=== PATIENT | female | born 1935 | race Caucasian/White ===

== ENCOUNTER 2017-02-26 15:18 | Emergency (ER) | payer MEDICARE, OTHER ==
[~2017-02-26] VITALS: Ht 165.1 cm; Wt 70.0 kg
[2017-02-26 17:15] VITALS: BP 142/67; PULSE 90; RESP 16; TEMP 98.7; O2SAT 96; O2SAT 99
[2017-02-26] MEDS ORDERED: SODIUM CHLOR 0.9% 1000 ML INJ 1,000 ML IV ONE (17:15)
[2017-02-26] MEDS ORDERED: SODIUM CHLORIDE 0.9% FLUSH 10 ML FLUSH IVF PRN (17:15)
[2017-02-26] MEDS ORDERED: CITA10TA4 PO (17:29)
[2017-02-26] MEDS ORDERED: SIMV20TA PO (17:29)
[2017-02-26] MEDS ORDERED: OMEP20TA PO (17:29)
[2017-02-26] MEDS ORDERED: AMLO5TAB2 PO (17:29)
[2017-02-26] MEDS ORDERED: ASPI1TAB69 PO (17:29)
[2017-02-26] MEDS ORDERED: CALC1TAB30 PO (17:29)
[2017-02-26] MEDS ORDERED: HYDR25TA5 PO (17:29)
--- NOTE | 2017-02-26 17:38 | RADRPT ---
EXAM DATE/TIME: 02/26/2017 17:11 [place] COMPARISON: No previous studies available for comparison. INDICATIONS : Short of breath. MEDICAL HISTORY : None. SURGICAL HISTORY : None. ENCOUNTER: Initial ACUITY: 1 day PAIN SCORE: 0/10 LOCATION: Bilateral chest FINDINGS: A single view of the chest demonstrates the lungs to be symmetrically aerated without evidence of mas s, infiltrate or effusion. The cardiomediastinal contours are unremarkable. Osseous structures are intact. CONCLUSION: No acute disease. Fernandez Betancourt MD FACR on February 26, 2017 at 17:36 Board Certified Radiologist. This report was verified electronically.
[2017-02-26 17:39] LABS: AUTOMATED NEUTROPHIL # 6.7 TH/MM3 (1.8-7.7); BASOPHIL # 0.1 TH/MM3 (0-0.2); BASOPHIL % 0.5 % (0.0-2.0); EOSINOPHIL # 0.1 TH/MM3 (0-0.4); EOSINOPHIL % 0.7 % (0.0-4.0); HEMATOCRIT 39.6 % (35.0-46.0); HEMO FLAGS DIFF FINAL; LYMPH % 21.5 % (9.0-44.0); LYMPHOCYTE # 2.1 TH/MM3 (1.0-4.8); MEAN CELL VOLUME 91.1 FL (80.0-100.0); MEAN CORPUSCULAR HEMOGLOBIN 30.5 PG (27.0-34.0); MEAN CORPUSCULAR HGB CONC 33.5 % (32.0-36.0); MONO % 7.2 % (0.0-8.0); NEUT % 70.1 % (16.0-70.0); PLATELET COUNT 290 TH/MM3 (150-450); RED BLOOD COUNT 4.34 MIL/MM3 (4.00-5.30); RED CELL DISTRIBUTION WIDTH 13.6 % (11.6-17.2); WHITE BLOOD COUNT 9.5 TH/MM3 (4.0-11.0)
--- NOTE | 2017-02-26 17:45 | PD ---
HPI Chief Complaint: Dizziness Time Seen by Provider: 17:09 Travel History International Travel<30 days: No Contact w/Intl Traveler<30days: No Traveled to known affect area: No History of Present Illness HPI Patient is an 81-year-old female history of hypertension, hyperlipidemia, vertigo, since emergency room for evaluation. Patient reports that she woke up this morning, reports that she felt overall lightheaded. Patient denies feeling dizzy, reports that she has had vertigo in the past and reports "its not the same feeling." Reports that she went about her day and had lunch. Reports that "I just want to be checked out to make sure I'm okay, I actually feel much better now that I am in the ER." Reports resolution of lightheadedness at this time. Denies dizziness, denies chest pain or shortness of breath. Denies fever/chills. Denies n/v. Denies abdominal pain. Denies dysuria/urinary urgency/freq. Patient with no other c/o at this time. PFSH Past Medical History Diminished Hearing: No Hypertension: Yes Medical other: Yes (spinal stenosis) Tetanus Vaccination: Unknown ?: Not Social History Alcohol Use: Yes (occ) Tobacco Use: No Substance Use: No Allergies-Medications (Allergen,Severity, Reaction): Coded Allergies: No Known Allergies (Unverified , 02/26/17) Reported Meds & Prescriptions Reported Meds & Active Scripts Active Reported Calcium 600 + D (Calcium Carbonate-Cholecalciferol) 600-200 Mg-Unit Tab 1 Tab PO DAILY Aspirin 81 Mg Tabdr 81 Mg PO DAILY Omeprazole 20 Mg Tab 20 Mg PO DAILY Amlodipine (Amlodipine Besylate) 5 Mg Tab 5 Mg PO DAILY Simvastatin 20 Mg Tab 20 Mg PO DAILY Hydrochlorothiazide 25 Mg Tab 25 Mg PO DAILY Citalopram (Citalopram Hydrobromide) 10 Mg Tab 10 Mg PO DAILY Review of Systems General / Constitutional: No: Fever Eyes: No: Visual changes HENT: Positive: Lightheadedness, No: Headaches, Sore Throat, Congestion, Nosebleed Cardiovascular: No: Chest Pain or Discomfort, Palpitations, Irregular Rhythm, Tachycardia Respiratory: No: Shortness of Breath Gastrointestinal: No: Abdominal Pain Genitourinary: No: Dysuria Musculoskeletal: No: Pain Skin: No Rash Neurologic: No: Weakness, Dizziness, Syncope, Headache Psychiatric: No: Depression Endocrine: No: Polydipsia Hematologic/Lymphatic: No: Easy Bruising Physical Exam Narrative GENERAL: NAD, Nontoxic SKIN: Focused skin assessment warm/dry. HEAD: Atraumatic. Normocephalic. EYES: Pupils equal and round. No scleral icterus. No injection or drainage. ENT: No nasal bleeding or discharge. Mucous membranes pink and moist. NECK: Trachea midline. No JVD. CARDIOVASCULAR: Regular rate and rhythm. No murmur appreciated. RESPIRATORY: No accessory muscle use. Clear to auscultation. Breath sounds equal bilaterally. GASTROINTESTINAL: Abdomen soft, non-tender, nondistended. Hepatic and splenic margins not palpable. MUSCULOSKELETAL: No obvious deformities. No clubbing. No cyanosis. No edema. NEUROLOGICAL: Awake and alert. No obvious cranial nerve deficits. Motor grossly within normal limits. Normal speech. CN 2-12 grossly intact with no neurological deficits PSYCHIATRIC: Appropriate mood and affect; insight and judgment normal. Data Data Last Documented VS Vital Signs Date Time Temp Pulse Resp B/P Pulse Ox O2 Delivery O2 Flow Rate FiO2 02/26/17 17:16 89 16 96 Room Air 02/26/17 17:15 98.7 142/67 Orders Electrocardiogram (02/26/17 17:11) Prothrombin Time / Inr (Pt) (02/26/17 17:11) Act Partial Throm Time (Ptt) (02/26/17 17:11) Complete Blood Count With Diff (02/26/17 17:11) Comprehensive Metabolic Panel (02/26/17 17:11) Urinalysis - C+S If Indicated (02/26/17 17:11) Chest, Single Ap (02/26/17 17:11) Ecg Monitoring (02/26/17 17:11) Iv Access Insert/Monitor (02/26/17 17:11) Oximetry (02/26/17 17:11) Sodium Chloride 0.9% Flush (Ns Flush) (02/26/17 17:15) Sodium Chlor 0.9% 1000 Ml Inj (Ns 1000 M (02/26/17 17:15) Urine Culture (02/26/17 17:19) Ceftriaxone Inj (Rocephin Inj) (02/26/17 18:30) Labs Laboratory Tests Test 02/26/17 17:19 White Blood Count 9.5 TH/MM3 Red Blood Count 4.34 MIL/MM3 Hemoglobin 13.3 GM/DL Hematocrit 39.6 % Mean Corpuscular Volume 91.1 FL Mean Corpuscular Hemoglobin 30.5 PG Mean Corpuscular Hemoglobin 33.5 % Concent Red Cell Distribution Width 13.6 % Platelet Count 290 TH/MM3 Mean Platelet Volume 8.2 FL Neutrophils (%) (Auto) 70.1 % Lymphocytes (%) (Auto) 21.5 % Monocytes (%) (Auto) 7.2 % Eosinophils (%) (Auto) 0.7 % Basophils (%) (Auto) 0.5 % Neutrophils # (Auto) 6.7 TH/MM3 Lymphocytes # (Auto) 2.1 TH/MM3 Monocytes # (Auto) 0.7 TH/MM3 Eosinophils # (Auto) 0.1 TH/MM3 Basophils # (Auto) 0.1 TH/MM3 CBC Comment DIFF FINAL Differential Comment Prothrombin Time 9.8 SEC Prothromb Time International 0.9 RATIO Ratio Activated Partial 24.7 SEC Thromboplast Time Urine Color COLORLESS Urine Turbidity CLEAR Urine pH 6.0 Urine Specific [place] 1.005 Urine Protein NEG mg/dL Urine Glucose (UA) NEG mg/dL Urine Ketones NEG mg/dL Urine Occult Blood NEG Urine Nitrite NEG Urine Bilirubin NEG Urine Urobilinogen LESS THAN 2.0 MG/DL Urine Leukocyte Esterase MOD Urine RBC 2 /hpf Urine WBC 10 /hpf Urine Squamous Epithelial 1 /hpf Cells Urine Transitional Epithelial 1 /hpf Cells Urine Bacteria RARE /hpf Microscopic Urinalysis Comment CATH-CULTURE IND Sodium Level 141 MEQ/L Potassium Level 3.3 MEQ/L Chloride Level 104 MEQ/L Carbon Dioxide Level 29.9 MEQ/L Anion Gap 7 MEQ/L Blood Urea Nitrogen 26 MG/DL Creatinine 0.98 MG/DL Estimat Glomerular Filtration 54 ML/MIN Rate Random Glucose 88 MG/DL Calcium Level 8.8 MG/DL Total Bilirubin 0.3 MG/DL Aspartate Amino Transf 16 U/L (AST/SGOT) Alanine Aminotransferase 25 U/L (ALT/SGPT) Alkaline Phosphatase 80 U/L Total Protein 7.1 GM/DL Albumin 3.7 GM/DL MDM Medical Decision Making Medical Screen Exam Complete: Yes Emergency Medical Condition: Yes Interpretation(s) EKG at 1728: NSR at 84bpm, qt/qtc: 385/425, no acute st or t wave changes Vital Signs Date Time Temp Pulse Resp B/P Pulse Ox O2 Delivery O2 Flow Rate FiO2 02/26/17 17:16 89 16 96 Room Air 02/26/17 17:15 98.7 90 16 142/67 99 Room Air 02/26/17 17:15 96 Room Air Differential Diagnosis lightheadedness could be secondary to ACS, arrhythmia, electrolyte abnormality, UTI, dehydration Narrative Course Patient is an 81-year-old female who presents to emergency room for evaluation of lightheadedness. Reports that she has been feeling lightheaded all day, reports no nausea or vomiting or chest pain or sob at this time. Patient reports that she has had decreased fluid intake today but has been eating like her normal self. Patient of this time reports no symptoms, denies lightheadedness or dizziness or chest pain or shortness breath. Patient reports that she is feeling fine at this time. EKG obtained, patient with no acute ST-T wave changes. She was placed on a quality assurance monitor body. Patient with a benign neurological exam. Plan to obtain basic labs, we'll give IV fluids, and monitor patient. UA obtained as well. CBC: wbc: 9.5 hgb: 13.3 hct: 39.6 plt: 290 BMP: Sodium 141 Chloride 104 Potassium 3.3 BUN 26 Creatinine 0.98 UA: Positive for moderate leuk esterase, 10 white blood cells, rare bacteria. Plan to treat patient with IV dose Rocephin as well as give macrobid script, urine culture sent. xray of chest: no acute disease Last Impressions Chest X-Ray 02/26/17 1711 Signed Impressions: Service Date/Time: Sunday, February 26, 2017 17:11 - CONCLUSION: No acute disease. Fernandez Betancourt MD FACR Diagnosis Primary Impression: UTI (urinary tract infection) Qualified Code: N30.00 - Acute cystitis without hematuria Additional Impressions: Lightheadedness Hypokalemia Patient Instructions: General Instructions Additional Instructions: Please follow-up with cultures from today Return to the emergency room as needed Return to the emergency room if symptoms return or progress Please call your primary care doctor for earliest follow up Med/Other Pt SpecificInfo: Prescription(s) given Scripts Nitrofurantoin Monohydrate Macrocrystals (Macrobid)100 Mg [id number] Mg PO BID 10 Days Ref 0 Prov:Maria G Mercer DO 02/26/17 Maria G Mercer DO Feb 26, 2017 17:45
[2017-02-26 17:46] LABS: BACTERIA, URINE RARE /hpf; BLOOD, URINE NEG (NEG); GLUCOSE,URINE NEG (NEG); KETONE, URINE NEG (NEG); NITRITE,URINE NEG (NEG); SQUAMOUS EPITHELIAL CELL URINE 1 /hpf (0-5); TRANSITIONAL EPI CELLS, URINE 1 /hpf; URINE COLOR COLORLESS (YELLW/STRAW)
[2017-02-26 17:47] LABS: APTT (PATIENT) 24.7 SEC (24.3-30.1); COMMENT (UR) CATH-CULTURE IND; CULTURE IF INDICATED CATH CULTURE IND; INTERNATIONAL NORMALIZED RATIO 0.9 RATIO; PROTHROMBIN TIME - PATIENT 9.8 SEC (9.8-11.6)
[2017-02-26 17:58] LABS: ANION GAP 7 MEQ/L (5-15); AST (GOT) 16 U/L (15-37); BICARBONATE 29.9 MEQ/L (21.0-32.0); BLOOD UREA NITROGEN 26 MG/DL (7-18); CHLORIDE 104 MEQ/L (98-107); GLOMERULAR FILTRATION RATE 54 ML/MIN (>89); POTASSIUM 3.3 MEQ/L (3.5-5.1); SODIUM (NA) 141 MEQ/L (136-145)
[2017-02-26 18:01] LABS: ALKALINE PHOSPHATASE 80 U/L (45-117); ALT (GPT) 25 U/L (10-53); TOTAL BILIRUBIN ADULT 0.3 MG/DL (0.2-1.0)
[2017-02-26] MEDS ORDERED: cefTRIAXone INJ 1,000 MG in SODIUM CHLORIDE 0.9% INJ 100 ML IV ONE (18:30)
[2017-02-26] MEDS ORDERED: MACR100C2 PO (18:36)
[2017-02-26] MEDS ORDERED: POTASSIUM CHLORIDE 10 MEQ CONTROLLED RELEASE TAB PO ONE (18:45)
[2017-02-26 19:23] VITALS: BP 152/77; PULSE 83; RESP 18; O2SAT 100
[2017-02-26 20:14] VITALS: BP 115/80
--- NOTE | 2017-02-28 21:30 | EKG ---
Date Performed: 02/26/2017 Time Performed: 17:28:26 PTAGE: 81 years EKG: Sinus rhythm LEFT ATRIAL ENLARGEMENT ANTEROSEPTAL MYOCARDIAL INFARCTION ABNORMAL ECG NO PREVIOUS TRACING DOCTOR: Josué Sullivan Interpretating Date/Time 02/28/2017 21:26:16
== END 2017-02-26 20:14 | disposition home or self-care (01) ==
LOC: NEPA 15:18
DX: R42 Dizziness and giddiness (principal); I10 Essential (primary) hypertension; E78.5 Hyperlipidemia, unspecified; R94.31 Abnormal electrocardiogram [ECG] [EKG]; E87.6 Hypokalemia; N30.00 Acute cystitis without hematuria; B96.89 Other specified bacterial agents as the cause of diseases classified elsewhere
CPT/HCPCS: 71010; 80053; 81001; 85025; 85610; 85730; 87086; 93005; 96374; 99284; J0696; J7030